=== PATIENT | male | born 1970 ===

== ENCOUNTER 2016-09-09 10:44 | Emergency (ER) | payer OTHER ==
[2016-09-09 10:51] VITALS: BP 118/64; PULSE 76; RESP 20; TEMP 97.6; O2SAT 100
--- NOTE | 2016-09-09 11:26 | ED PDOC ---
HPI: Skin/Bite Injury Time Seen by Provider: 09/09/16 11:14 Chief Complaint (Nursing): Abnormal Skin Integrity Chief Complaint (Provider): rash History Per: Patient History/Exam Limitations: no limitations Onset/Duration Of Symptoms: Days (x 2 weeks) Additional Complaint(s): Alec Peter is a 46 year old male, with a previous medical history of thyroid cancer, who presents to the ED with complaints of an itchy generalized rash which he developed after sleeping on a friends couch 2 weeks ago. Patient reports rash is localized to hands especially in between his fingers. Patient dneies any fever, chills, shortness of breath or throat swelling. Patient saw his PMD who placed him on a dry skin ointment and gave him one pill of an unknown medication which provided no relief. Past Medical History Reviewed: Historical Data, Nursing Documentation, Vital Signs Vital Signs: Last Vital Signs Temp 97.6 F 09/09/16 10:50 Pulse 76 09/09/16 10:50 Resp 20 09/09/16 10:50 BP 118/64 09/09/16 10:50 Pulse Ox 100 09/09/16 11:37 - Medical History PMH: HTN, Hypercholesterolemia, Hypothyroidism (thyroidectomy), Malignancy ( thyroid CA) - Surgical History Surgical History: Cholecystectomy - Family History Family History: States: Unknown Family Hx - Immunization History Hx Tetanus Toxoid Vaccination: No Hx Influenza Vaccination: No Hx Pneumococcal Vaccination: No - Home Medications Home Medications: Ambulatory Orders Medication Instructions Recorded Ciprofloxacin 0.3% [Ciloxan 0.3% 1 drop RIGHTEYE QID #1 bottle 06/30/15 Ophth SOLN] Ibuprofen [Motrin] 1 tab PO Q8 PRN #21 tab 06/30/15 Levothyroxine [Synthroid] 25 mcg PO DAILY 06/30/15 Promethazine/Codeine 5 ml PO BID PRN #100 ml 06/30/15 [Codeine/Promethazine 10 MG/5 Ml-6.25 MG/5 Ml] Alogliptin Rocael/Metformin HCl 1 tab PO BID 10/02/15 [Kazano 12.5-1,000 mg Tablet] Aspirin [Ecotrin] 81 mg PO DAILY 10/02/15 Enalapril Maleate [Vasotec] 5 mg PO DAILY 10/02/15 Ergocalciferol (Vitamin D2) 50,000 unit PO QWK 10/02/15 [Vitamin D2] Fenofibrate,Micronized [Lofibra] 134 mg PO DAILY 10/02/15 Icosapent Ethyl [Vascepa] 1 gm PO BID 10/02/15 Levothyroxine Sodium [Synthroid] 300 mcg PO DAILY 10/02/15 Permethrin 5% [Permethrin 5% Cream] 6 applic TOP ONCE #1 tube 09/09/16 - Allergies Allergies/Adverse Reactions: Allergies Allergy/AdvReac Type Severity Reaction Status Date / Time Penicillins Allergy RASH Verified 10/02/15 09:14 Review of Systems ROS Statement: Except As Marked, All Systems Reviewed And Found Negative Constitutional: Negative for: Fever ENT: Negative for: Throat Swelling Respiratory: Negative for: Shortness of Breath Physical Exam - Reviewed Nursing Documentation Reviewed: Yes Vital Signs Reviewed: Yes - Physical Exam Appears: Positive for: Well, Non-toxic, No Acute Distress Head Exam: Positive for: ATRAUMATIC, NORMAL INSPECTION, NORMOCEPHALIC Skin: Positive for: Warm, Dry, Rash (generalized papular rash present interdigits in left hand. no vesicles no tenderness or enduration ) Cardiovascular/Chest: Positive for: Regular Rate, Rhythm Respiratory: Positive for: CNT, Normal Breath Sounds Neurologic/Psych: Positive for: Alert, Oriented - ECG O2 Sat by Pulse Oximetry: 100 (RA) Pulse Ox Interpretation: Normal Medical Decision Making Medical Decision Making: Initial Impression: Scabies Initial Plan: * physical exam * disposition Scribe Attestation: Documented by Carolynn Chavez, acting as a scribe for Carolynn Perez MD. Provider Scribe Attestation: All medical record entries made by the Scribe were at my direction and personally dictated by me. I have reviewed the chart and agree that the record accurately reflects my personal performance of the history, physical exam, medical decision making, and the department course for this patient. I have also personally directed, reviewed, and agree with the discharge instructions and disposition. Disposition - Clinical Impression Clinical Impression: Scabies - Disposition Referrals: Vel Rogel MD [Family Provider] - Disposition: Routine/Home Disposition Time: 11:26 Condition: STABLE Prescriptions: Permethrin 5% [Permethrin 5% Cream] 6 applic TOP ONCE #1 tube Instructions: Scabies (ED)
== END 2016-09-09 12:19 | disposition home or self-care (01) ==
LOC: H.ER 10:44
DX: B86 Scabies (principal)